=== PATIENT | male | born 1995 | race Hispanic/Latino ===

== ENCOUNTER 2019-12-29 20:27 | Emergency (ER) | payer OTHER ==
[~2019-12-29] VITALS: Ht 160 cm; Wt 77.3 kg
[2019-12-29 20:27] VITALS: BP 134/82
[2019-12-29] MEDS ORDERED: DERMABOND TOPICAL SKIN ADHESIVE TOP ONE (21:15)
== END 2019-12-29 21:30 | disposition home or self-care (01) ==
LOC: M ED 20:27
DX: S61.215A Laceration without foreign body of left ring finger without damage to nail, initial encounter (principal); W26.8XXA Contact with other sharp object(s), not elsewhere classified, initial encounter; Y92.009 Unspecified place in unspecified non-institutional (private) residence as the place of occurrence of the external cause; Y99.8 Other external cause status